=== PATIENT | male | born 1990 ===

== ENCOUNTER 2024-12-25 23:10 | Emergency (ER) | payer OTHER ==
[~2024-12-25] VITALS: Ht 188 cm; Wt 93.9 kg
== END 2024-12-26 03:08 | disposition home or self-care (01) ==
LOC: ER 23:10
DX: S60.222A Contusion of left hand, initial encounter (principal); W22.8XXA Striking against or struck by other objects, initial encounter; Z88.8 Allergy status to other drugs, medicaments and biological substances
CPT/HCPCS: 73130; 99283-25

== ENCOUNTER 2024-12-30 21:00 | Observation (INO) | payer OTHER ==
[~2024-12-30] VITALS: Ht 182.9 cm; Wt 90.7 kg
[2024-12-30 22:43] LABS: BASOPHILS ABSOLUTE AUTO 0.04 K/mm3 (0.00-0.23); BASOPHILS PERCENT AUTO 1 % (0-2); EOSINOPHILS ABSOLUTE AUTO 0.22 K/mm3 (0.00-0.68); EOSINOPHILS PERCENT AUTO 3 % (0-6); Hemoglobin 12.5 g/dL (13.5-17.5); IMMATURE GRAN ABSOLUTE AUTO 0.01 K/mm3 (0.00-0.10); IMMATURE GRAN PERCENT AUTO 0 % (0-1); LYMPHOCYTES ABSOLUTE AUTO 1.95 K/mm3 (0.84-5.20); LYMPHOCYTES PERCENT AUTO 30 % (21-46); MONOCYTES ABSOLUTE AUTO 0.48 K/mm3 (0.16-1.47); MONOCYTES PERCENT AUTO 7 % (4-13); Mean Corpuscular HGB 28.2 pg (26.0-34.0); Mean Corpuscular HGB Conc 33.8 g/dL (31.5-36.5); Mean Corpuscular Volume 84 fL (80-100); Mean Platelet Volume 9.9 fL (9.1-12.4); NEUTROPHILS ABSOLUTE AUTO 3.75 K/mm3 (1.96-9.15); NEUTROPHILS PERCENT AUTO 58 % (41-73); Platelet Count 316 K/mm3 (150-400); RDW Coefficient Variation 16.4 % (11.7-14.2); RDW Standard Deviation 50.1 fL (35.1-46.3); Red Blood Cell Count 4.43 M/mm3 (4.30-5.90); White Blood Cell Count 6.45 K/mm3 (4.00-11.30)
[2024-12-30 23:10] LABS: Ethanol (Alcohol), Blood, Med <3 mg/dL
[2024-12-30 23:15] LABS: Alanine Aminotransfer (ALT/SGP 28 U/L (12-78); Albumin, Blood 3.1 g/dL (3.4-5.0); Albumin/Globulin Ratio 0.9 (0.8-1.8); Alk Phos 91 U/L (50-136); Anion Gap 9 mmol/L (3-11); Aspartate Aminotrans (AST/SGOT 13 U/L (12-37); Bilirubin, Total 0.2 mg/dL (0.1-1.0); Blood Urea Nitrogen 9 mg/dL (8-24); Bun/Creatinine Ratio 12.7 (12.0-20.0); CO2, Blood 27 mmol/L (21-32); Calcium, Blood 8.1 mg/dL (8.5-10.1); Chloride, Blood 107 mmol/L (98-108); Creatinine, Blood 0.71 mg/dL (0.60-1.20); Globulin, Blood 3.5 g/dL (2.2-4.0); Glomerular Filtration Rate 123 (60-); Glucose, Blood 107 mg/dL (70-99); Potassium, Blood 3.9 mmol/L (3.5-5.5); Sodium, Blood 139 mmol/L (136-145); Total Protein, Blood 6.6 g/dL (6.4-8.2)
[2024-12-30 23:20] LABS: Acetaminophen, Random <2.0 ug/mL (10.0-30.0)
[2024-12-31 09:10] LABS: Source, Urine Clean Catch
[2024-12-31 09:36] LABS: Appearance, Urine Clear (Clear); Bilirubin, Urine Neg (Neg); Blood, Urine Neg (Neg); Color, Urine Yellow (P-Yellow); Glucose Qualitative, Urine Neg (Neg); Ketones, Urine Neg (Neg); Leukocyte Esterase, Urine 3+ (Neg); Nitrite, Urine Neg (Neg); Protein, Urine Neg (Neg); Urobilinogen, Urine NORM (Normal)
[2024-12-31 10:00] LABS: U Amphetamine Screen DETECTED; U Barbituate Screen Not Detected; U Benzodiazapine Screen Not Detected; U Cocaine Screen Not Detected; U Methadone Screen Not Detected; U Methamphetamine Screen DETECTED; U Opiates Screen Not Detected; U Phencyclidine Screen Not Detected
[2024-12-31 10:01] LABS: U Buprenorphine Screen Not Detected; U Cannabinoids Screen DETECTED; U Oxycodone Screen Not Detected
[2024-12-31 10:23] LABS: Bacteria Few /hpf; Red Blood Cells, Urine 0-2 /hpf (0-2); Squamous Epithelial Cells Many /hpf (Few); White Blood Cells, Urine 25-50 /hpf (0-5)
[2024-12-31] MEDS ORDERED: OLANZapine ODT 5 MG Tab MM ONE (10:35)
[2024-12-31] MEDS ORDERED: OLANZapine ODT 5 MG Tab MM PRN (17:15)
[2024-12-31 19:06] LABS: Influenza A, PCR NEGATIVE (NEGATIVE); Influenza B, PCR NEGATIVE (NEGATIVE); Resp Syncytial Virus, PCR NEGATIVE (NEGATIVE); SARS-Cov-2 (COVID-19) PCR, MMC NEGATIVE (NEGATIVE)
[2024-12-31] MEDS ORDERED: OLANZapine 10 MG Tab PO SCH (21:00)
[2025-01-02] MEDS ORDERED: OLAN10 PO (11:36)
== END 2025-01-01 13:45 | disposition other institution (70) ==
LOC: ER 21:00 → EOR 21:01
PROVIDERS: ADMIT Emergency Medicine
DX: F20.9 Schizophrenia, unspecified (principal); R45.851 Suicidal ideations; F12.29 Cannabis dependence with unspecified cannabis-induced disorder; F15.20 Other stimulant dependence, uncomplicated; Z88.5 Allergy status to narcotic agent; Z59.00 Homelessness unspecified
CPT/HCPCS: 0241U; 80053; 80320; 81001; 83036; 84443; 85025; 87086; 93005; 93010; 99285-25; A9270; G0378; G0480

== ENCOUNTER 2024-12-31 12:03 | Inpatient (IN) | payer OTHER ==
[2025-01-01] MEDS ORDERED: TraZODone HCl 50 MG Tab PO PRN (09:50)
[2025-01-01] MEDS ORDERED: Polyethylene Glycol 3350 17 gm PO PRN (09:50)
[2025-01-01] MEDS ORDERED: LORazepam 2 MG Tab PO PRN (09:50)
[2025-01-01] MEDS ORDERED: Ibuprofen 600 MG Tab PO PRN (09:55)
[2025-01-01] MEDS ORDERED: Aluminum Hydroxide 320MG/5ML 473 ML PO PRN (09:55)
[2025-01-01] MEDS ORDERED: LORazepam 2 MG/ML 1ML Injection IM PRN (09:55)
[2025-01-01] MEDS ORDERED: HydrOXYzine Pamoate 50 MG Cap PO PRN (09:55)
[2025-01-01] MEDS ORDERED: DiphenhydrAMINE HCl 50 MG Cap PO PRN (09:55)
[2025-01-01] MEDS ORDERED: DiphenhydrAMINE HCl 50 MG/ML 1ML Vial IV PRN (09:55)
[2025-01-01] MEDS ORDERED: Haloperidol Lactate Inj. 5 MG/ML Injection IM PRN ×2 (10:00)
[2025-01-01] MEDS ORDERED: Melatonin 3 MG Tab PO PRN (10:00)
[2025-01-01] MEDS ORDERED: Acetaminophen 325 MG TABLET PO PRN (10:00)
[2025-01-01] MEDS ORDERED: Calcium Carbonate 500 MG Tab Chew PO PRN (10:00)
[2025-01-01] MEDS ORDERED: Ondansetron 4 MG SoluTab MM PRN (10:05)
[2025-01-01 13:54] VITALS: BP 112/64
--- NOTE | 2025-01-01 14:10 | NUR ---
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 PT AGITATED BUT COOPERATIVE. REPEATED REQUESTS FOR FOOD AND DRINK. PT AGREES TO TAKE PO MEDICATIONS FOR ANXIETY/AGITATION CONTROL BUT STATES HE IS AFRAID OF NEEDLES AND DOES NOT WANT INJECTION GIVEN. ADMINISTERED PO ATIVAN AND BENADRYL PER ORDERS. HELD HALDOL IT WAS ORDERED IM. AWAITING CLARIFYING ORDERS FROM MD. PT CURRENTLY FOLLOWING COMMANDS BUT INCREASED MOVEMENTS AND ACTIVITY. FOOD AND DRINK PROVIDED THEN ESCORTED TO ROOM FOR SAFETY/SECURITY AT THIS TIME. WILL ATTEMPT FULL ADMISSION HISTORY AFTER MEDICATIONS TAKE EFFECT AND AGITATION IS CONTROLLED. PT DID AGREE TO SIGN ADMISSION FORMS. ORIENTED TO ROOM.
[2025-01-01] MEDS ORDERED: Haloperidol 5 MG Tab PO PRN (14:15)
[2025-01-01] MEDS ORDERED: DiphenhydrAMINE HCl 50 MG/ML 1ML Vial IM PRN (14:15)
[2025-01-01 14:23] VITALS: BP 112/64
--- NOTE | 2025-01-01 16:20 | NUR ---
SKIN CHECK PERFORMED WITH 3 RN'S. NOTED DISCOLORATION TO RIGHT SIDE OF NECK, ERASER SIZED WOUND ON LEFT 5TH TOE DORSAL SURFACE. PT FOLLOWED DIRECTIONS BUT WAS AGITATED AND ANGRY DURING SKIN CHECK. CALLED STAFF "STUPID" AND "RETARDED" FOR PERFORMING SKIN CHECK. ASKED REPEATEDLY FOR JUICE. PT DID NOT WANT TO TAKE A SHOWER. WENT BACK TO BED AFTER SKIN CHECK.
--- NOTE | 2025-01-01 16:56 | NUR ---
SHIFT SUMMARY: PT ADMITTED TODAY FROM ED WITH HOMICIDAL THOUGHTS WHEN HIGH ON METH. PT REMAINS ON 2 MD HOLD. QUESTIONABLE HISTORY OF SCHIZOPHRENIA VS. BEHAVIORS. PT DOES FOLLOW COMMANDS BUT IS IRRITABLE/AGITATED WHEN DOING SO. ONLY INTERESTED IN EATING OR SLEEPING AND DOES NOT WANT TO BE DISTURBED OTHERWISE. CALLS STAFF DEROGATORY NAMES IN INTERACTIONS. PT DENIES ANY CURRENT HOMICIDAL THOUGHTS. PT NOT WILLING TO INTERACT WITH STAFF TO ANSWER MEDICAL HISTORY QUESTIONS OR COMPLETE NURSING ASSESSMENTS. CONTINUE EVERY 15 MINUTE CHECKS AND ATTEMPT TO MEET NEEDS IF EXPRESSED.
--- NOTE | 2025-01-01 18:31 | NUR ---
HOSPITALIST TEAM HERE FOR EVALUATION R/T URINALYSIS RESULTS. PT DENIED PAIN WITH URINATION, DENIED DRAINAGE FROM PENIS. C/O BACK PAIN BUT STATED "IT'S FROM A FALL" LAST SEXUAL INTERCOURSE WAS 2 WEEKS AGO. REFUSED TO ANSWER QUESTIONS REGARDING USE OF PROTECTION OR IF INTERCOURSE WITH MALE OR FEMALE. PHYSICIANS COMPLETED EVALUATION AND EXITED FACILITY. WILL AWAIT ANY FURTHER FOLLOW UP IF INDICATED.
[2025-01-01] MEDS ORDERED: OLANZapine 10 MG Tab PO SCH (21:00)
[2025-01-01] MEDS ORDERED: Docusate Sodium 100 MG Cap PO SCH (21:00)
--- NOTE | 2025-01-02 04:31 | NUR ---
SHIFT SUMMARY PATIENT RESTING IN BED, AWAKENS TO VERBAL STIMULI. BECOMING FRUSTRATED AND AGITATED WHEN BEING ASKED QUESTIONS, GIVING QUICK SHORT ANSWERS. DENIES SI, HI, OR AVH. WHEN AWAKE PATIENT HAVING QUICK SUDDEN MOVEMENTS. DUE TO AGITATION AND BEING QUICK TO ANGER PATIENT HAVING SNACK IN HIS ROOM AWAY FROM PEERS. PATIENT COOPERATIVE WITH PO MEDICATIONS. FALLING BACK TO SLEEP WHEN UNDISTURBED. RESP EVEN AND UNLABORED. CONTINUE TO MONITOR Q15MIN
[2025-01-02] MEDS ORDERED: Multivitamins 1 Tab PO SCH (09:00)
[2025-01-02] MEDS ORDERED: OLAN10 PO (11:36)
--- NOTE | 2025-01-02 12:43 | NUR ---
DISCHARGE NOTE: DISCHARGED [id number]: PT A/OX 4. PT SLEPT THIS AM UNTIL MEALTIME. ATE LUNCH THEN PT GIVEN DISCHARGE INSTRUCTIONS IN WHICH HE REFUSED THEM, BUT SIGNED DISCHARGE FORM. PT TALKED WIH HIS MOTHER ON THE PHONE SEVERAL TIMES. PT HAD AN ANGRY HARSH TONE. ARGUMENTIVE ATTITUDE ALSO. PT DENIED EARILER THIS AM TO BE SI, HI AND AVH. WANTED TO GO HOME. PT ON DISCHARGE GIVEN/RETURNED BELONGINGS. PT LEFT ON FOOT. DECLINED OFFER OF TAXI RIDE TO ADAPT. MEDS CALLED INTO [facility]. PT TO [facility] INST[facility].
== END 2025-01-02 12:42 | disposition home or self-care (01) | DRG 885 ==
LOC: BHU 12:03
PROVIDERS: ADMIT Student in an Organized Health Care Education/Training Program
DX: F20.0 Paranoid schizophrenia (principal); Z59.00 Homelessness unspecified; R78.81 Bacteremia; Z91.041 Radiographic dye allergy status; Z79.899 Other long term (current) drug therapy; T43.655A Adverse effect of methamphetamines, initial encounter; F12.20 Cannabis dependence, uncomplicated
CPT/HCPCS: A9270

== ENCOUNTER 2025-01-05 07:02 | Emergency (ER) | payer OTHER ==
[~2025-01-05] VITALS: Ht 188 cm; Wt 90.7 kg
[~2025-01-05 07:02] MED LIST: OLAN10 PO
== END 2025-01-05 09:25 | disposition home or self-care (01) ==
LOC: ER 07:02
DX: L84 Corns and callosities (principal); Z91.041 Radiographic dye allergy status
CPT/HCPCS: 99283